=== PATIENT | male | born 1960 | race Caucasian/White ===

== ENCOUNTER 2017-01-15 07:55 | Day surgery (SDC) | payer OTHER ==
[2017-01-13 15:34] VITALS: BMI 25.1
[2017-01-15] MEDS ORDERED: PROPOFOL 20 ML ONE ×2 (08:01)
[2017-01-15] MEDS ORDERED: LIDOCAINE HCL/PF 2% SDV 5ML VIAL ONE (08:13)
[2017-01-15 13:02] VITALS: BP 117/67; PULSE 69; TEMP 98
== END 2017-01-15 10:30 | disposition home or self-care (01) ==
LOC: FASU-ENDO 07:55
PROVIDERS: ATTEND Internal Medicine Gastroenterology
PROC: 0DJD8ZZ Inspection of Lower Intestinal Tract, Via Natural or Artificial Opening Endoscopic (ICD-10-PCS; principal; 2017-01-15 08:57)
DX: Z12.11 Encounter for screening for malignant neoplasm of colon (principal)